=== PATIENT | female | born 1970 | race African-American/Black ===

== ENCOUNTER 2019-05-25 06:06 | Emergency (ER) | payer MEDICARE, MEDICAID ==
[~2019-05-25] VITALS: Ht 170.2 cm; Wt 68.5 kg
[2019-05-25 06:28] VITALS: BP 138/85
[2019-05-25] MEDS ORDERED: TRIH5TAB2 PO (06:28)
[2019-05-25] MEDS ORDERED: OLAN5TAB2 PO (06:28)
[2019-05-25] MEDS ORDERED: LEVE500T53 PO (06:28)
[2019-05-25] MEDS ORDERED: HYDR25TA PO (06:28)
[2019-05-25] MEDS ORDERED: PARO20TA24 PO (06:28)
[2019-05-25] MEDS ORDERED: CARB200T6 PO (06:28)
[2019-05-25 07:08] LABS: BASOPHILS % (AUTO) 0.5 % (0.0-2.0); EOSINOPHILS % (AUTO) 0.3 % (1.0-6.0); HEMATOCRIT 37.1 % (36-46); HEMOGLOBIN 12.5 g/dL (12.0-16.0); LYMPHOCYTES # (AUTO) 1.2 K/uL (1.0-4.8); LYMPHOCYTES % (AUTO) 22.1 % (22.0-44.0); MEAN CORPUSCULAR HEMOGLOBIN 29.5 pg (26.0-34.0); MEAN CORPUSCULAR HGB CONC 33.6 G/dL (31.0-37.0); MEAN CORPUSCULAR VOLUME 88 fL (80-100); MONOCYTES # (AUTO) 0.4 K/uL (0.1-1.0); MONOCYTES % (AUTO) 8.1 % (2.0-9.0); NEUTROPHILS # (AUTO) 3.6 K/uL (1.8-7.7); PLATELET COUNT (AUTO) 284 K/uL (150-450); RED BLOOD CELL COUNT(AUTO) 4.23 MIL/uL (4.00-5.20); RED CELL DISTRIBUTION WIDTH 13.4 % (11.5-14.5)
[2019-05-25 07:13] LABS: ANION GAP 7 mmol/L (8-16); CALCIUM, TOTAL 8.8 mg/dL (8.8-10.5); CARBON DIOXIDE 28 mmol/L (22-29); CHLORIDE 105 mmol/L (98-107); GLOMERULAR FILTR. RATE CALC > 60 mL/min (>60); GLUCOSE,RANDOM 107 mg/dL (70-110); POTASSIUM 3.5 mmol/L (3.5-5.1); SODIUM SERUM 140 mmol/L (136-145)
[2019-05-25 07:18] LABS: CARBAMAZEPINE (TEGRETOL) 2.8 mcg/mL (4.0-12.0); UREA NITROGEN, BLOOD 7 mg/dL (7-18)
[2019-05-25] MEDS ORDERED: CarBAMazepine 200 MG TABLET PO ONE (07:30)
== END 2019-05-25 08:54 | disposition home or self-care (01) ==
LOC: EMS 06:06
DX: R53.1 Weakness (principal); R25.1 Tremor, unspecified

== ENCOUNTER 2019-05-25 09:43 | Emergency (ER) | payer MEDICARE, MEDICAID ==
[~2019-05-25] VITALS: Ht 165.1 cm; Wt 55.0 kg
[~2019-05-25 09:43] MED LIST: CARB200T6 PO; HYDR25TA PO; LEVE500T53 PO; OLAN5TAB2 PO; PARO20TA24 PO; TRIH5TAB2 PO
[2019-05-25 16:01] VITALS: BP 158/90
== END 2019-05-25 16:02 | disposition home or self-care (01) ==
LOC: EMS 09:44
DX: Z59.9 Problem related to housing and economic circumstances, unspecified (principal)

== ENCOUNTER 2020-08-14 08:58 | Emergency (ER) | payer MEDICARE, MEDICAID ==
[~2020-08-14] VITALS: Ht 157.5 cm; Wt 58.0 kg
[~2020-08-14 08:58] MED LIST changes: -HYDR25TA PO; +HYDR25TA2 PO; +PARO-38 PO; -PARO20TA24 PO; -TRIH5TAB2 PO; +TRIH5TAB4 PO
[2020-08-14 09:44] VITALS: BP 111/79
== END 2020-08-14 13:19 | disposition home or self-care (01) ==
LOC: EMS 09:17
DX: F43.20 Adjustment disorder, unspecified (principal)
CPT/HCPCS: 99285; Z7502